=== PATIENT | female | born 1990 | race African-American/Black ===

== ENCOUNTER 2017-09-14 03:14 | Emergency (ER) | payer MEDICAID ==
[~2017-09-14] VITALS: Ht 162.6 cm; Wt 112.0 kg
[2017-09-14 04:08] LABS: BASOPHIL % 0.2 % (0-2)
[2017-09-14 04:19] LABS: PLATELET COUNT 118 x10^3mcL (130-400); RED CELL DISTRIBUTION WIDTH 16.5 % (11.5-14.5)
[2017-09-14 04:28] LABS: CALCIUM 8.3 mg/dL (8.5-10.1); CARBON DIOXIDE 29.3 mmol/L (21-32); CHLORIDE SERUM 101 mmol/L (98-107); CREATININE SERUM 0.8 mg/dL (0.6-1.0); GFR1 > 60 mL/min; GLUCOSE SERUM 123 mg/dL (74-106); POTASSIUM SERUM 3.1 mmol/L (3.5-5.1); SODIUM SERUM 138 mmol/L (136-145)
[2017-09-14 04:33] LABS: ALKALINE PHOSPHATASE 77 U/L (46-116); ALT/SGPT 48 U/L (14-59); AST/SGOT 37 U/L (15-37); BILIRUBIN TOTAL 0.29 mg/dL (0.20-1.00); LIPASE 91 IU/L (73-393); TOTAL PROTEIN, SERUM 7.2 g/dL (6.4-8.2)
[2017-09-14 04:37] LABS: ALBUMIN 3.3 g/dL (3.4-5.0)
[2017-09-14 05:05] VITALS: BP 123/41
== END 2017-09-14 05:03 | disposition home or self-care (01) ==
LOC: ED 03:14
PROVIDERS: Emergency Medicine
DX: N12 Tubulo-interstitial nephritis, not specified as acute or chronic (principal); J02.9 Acute pharyngitis, unspecified
CPT/HCPCS: 36415; J1100; J1885; Q0162

== ENCOUNTER 2019-07-01 10:04 | Emergency (ER) | payer OTHER ==
[~2019-07-01] VITALS: Ht 162.6 cm; Wt 108.9 kg
[2019-07-01 10:46] VITALS: Ht 162.6 cm; Wt 108.9 kg
[2019-07-01 12:03] LABS: UA SPECIFIC GRAVITY >=1.030 (1.005-1.035); microscopic required? YES; urine erythrocyte 2+ (NEGATIVE)
[2019-07-01 12:12] LABS: CALCIUM 8.8 mg/dL (8.5-10.1); CARBON DIOXIDE 26.7 mmol/L (21-32); CHLORIDE SERUM 103 mmol/L (98-107); CREATININE SERUM 0.8 mg/dL (0.6-1.0); GFR1 > 60 mL/min; GLUCOSE SERUM 97 mg/dL (74-106); POTASSIUM SERUM 3.8 mmol/L (3.5-5.1); SODIUM SERUM 138 mmol/L (136-145)
[2019-07-01 12:14] LABS: BASOPHIL % 1.3 % (0-2); PLATELET COUNT 147 x10^3mcL (130-400)
[2019-07-01 12:17] LABS: ALBUMIN 3.6 g/dL (3.4-5.0); ALKALINE PHOSPHATASE 73 U/L (46-116); ALT/SGPT 62 U/L (14-59); AST/SGOT 25 U/L (15-37); BILIRUBIN TOTAL 0.3 mg/dL (0.20-1.00); LIPASE 60 IU/L (73-393); TOTAL PROTEIN, SERUM 7.7 g/dL (6.4-8.2)
[2019-07-01 12:19] LABS: RED CELL DISTRIBUTION WIDTH 16.6 % (11.5-14.5)
[2019-07-01 13:51] VITALS: BP 138/75
== END 2019-07-01 13:51 | disposition home or self-care (01) ==
LOC: ED 10:04
PROVIDERS: Emergency Medicine
DX: O21.0 Mild hyperemesis gravidarum (principal); O23.41 Unspecified infection of urinary tract in pregnancy, first trimester; Z3A.01 Less than 8 weeks gestation of pregnancy
CPT/HCPCS: 87491; 87591; J2765; J3490; J7030

== ENCOUNTER 2019-11-18 16:01 | Emergency (ER) | payer OTHER ==
[~2019-11-18] VITALS: Ht 162.6 cm; Wt 123.4 kg
[2019-11-18 16:13] VITALS: Ht 162.6 cm; Wt 123.4 kg
[2019-11-18 17:05] LABS: BASOPHIL % 0.4 % (0-2); PLATELET COUNT 228 x10^3mcL (130-400); RED CELL DISTRIBUTION WIDTH 14.4 % (11.5-14.5)
[2019-11-18 17:08] LABS: CALCIUM 9.1 mg/dL (8.5-10.1); CARBON DIOXIDE 21.1 mmol/L (21-32); CHLORIDE SERUM 104 mmol/L (98-107); CREATININE SERUM 0.7 mg/dL (0.6-1.0); GFR1 > 60 mL/min; GLUCOSE SERUM 148 mg/dL (74-106); SODIUM SERUM 137 mmol/L (136-145)
[2019-11-18 17:12] LABS: ALKALINE PHOSPHATASE 60 U/L (46-116); ALT/SGPT 18 U/L (14-59); AST/SGOT 14 U/L (15-37); BILIRUBIN TOTAL 0.2 mg/dL (0.20-1.00); TOTAL PROTEIN, SERUM 6.5 g/dL (6.4-8.2)
[2019-11-18 17:14] LABS: ALBUMIN 2.7 g/dL (3.4-5.0)
[2019-11-18 17:31] LABS: microscopic required? NO
[2019-11-18 17:37] LABS: UA SPECIFIC GRAVITY >=1.030 (1.005-1.035); urine erythrocyte NEGATIVE (NEGATIVE)
[2019-11-18 18:40] VITALS: BP 136/70
== END 2019-11-18 18:40 | disposition home or self-care (01) ==
LOC: ED 16:01
PROVIDERS: Emergency Medicine
DX: O14.92 Unspecified pre-eclampsia, second trimester (principal); Z3A.26 26 weeks gestation of pregnancy
CPT/HCPCS: 36415